=== PATIENT | male | born 1995 | race African-American/Black ===

== ENCOUNTER 2017-02-18 17:20 | Emergency (ER) | payer SELFPAY ==
[~2017-02-18] VITALS: Ht 175.3 cm; Wt 58.8 kg
[2017-02-18 17:31] VITALS: BP 124/89
== END 2017-02-18 18:03 | disposition left against medical advice (07) ==
LOC: EME 17:20
DX: S09.90XA Unspecified injury of head, initial encounter (principal); Y00.XXXA Assault by blunt object, initial encounter; Z53.20 Procedure and treatment not carried out because of patient's decision for unspecified reasons; F17.200 Nicotine dependence, unspecified, uncomplicated
CPT/HCPCS: 99281; 99283

== ENCOUNTER 2017-02-26 10:56 | Emergency (ER) | payer SELFPAY ==
[~2017-02-26] VITALS: Ht 172.7 cm; Wt 60.2 kg
[2017-02-26] MEDS ORDERED: BENADRYL25 MG PO (12:17)
[2017-02-26] MEDS ORDERED: DELTASONE20 M1 PO (12:17)
[2017-02-26 12:28] VITALS: BP 127/90
== END 2017-02-26 12:29 | disposition home or self-care (01) ==
LOC: EME 10:56
DX: S40.861A Insect bite (nonvenomous) of right upper arm, initial encounter (principal); S40.862A Insect bite (nonvenomous) of left upper arm, initial encounter; W57.XXXA Bitten or stung by nonvenomous insect and other nonvenomous arthropods, initial encounter; R22.0 Localized swelling, mass and lump, head; F17.200 Nicotine dependence, unspecified, uncomplicated
CPT/HCPCS: 99281; 99283

== ENCOUNTER 2017-03-20 00:01 | Emergency (ER) | payer SELFPAY ==
[~2017-03-20] VITALS: Ht 172.7 cm; Wt 59.9 kg
[~2017-03-20 00:01] MED LIST: BENADRYL25 MG PO; DELTASONE20 M1 PO
[2017-03-20 02:23] VITALS: BP 139/96
== END 2017-03-20 02:24 | disposition home or self-care (01) ==
LOC: EME 00:01
DX: R36.9 Urethral discharge, unspecified (principal); N48.89 Other specified disorders of penis; Z11.3 Encounter for screening for infections with a predominantly sexual mode of transmission; F17.200 Nicotine dependence, unspecified, uncomplicated
CPT/HCPCS: 99281; 99284; J0696

== ENCOUNTER 2017-03-25 16:40 | Emergency (ER) | payer SELFPAY ==
[~2017-03-25] VITALS: Ht 172.7 cm; Wt 60.5 kg
[2017-03-25 18:31] VITALS: BP 132/88
== END 2017-03-25 18:33 | disposition left against medical advice (07) ==
LOC: EME 16:40
DX: S30.0XXA Contusion of lower back and pelvis, initial encounter (principal); V03.00XA Pedestrian on foot injured in collision with car, pick-up truck or van in nontraffic accident, initial encounter; M79.601 Pain in right arm; J45.909 Unspecified asthma, uncomplicated; F17.200 Nicotine dependence, unspecified, uncomplicated
CPT/HCPCS: 99281; 99283